=== PATIENT | male | born 1955 | race Caucasian/White ===

== ENCOUNTER 2018-04-23 12:10 | Inpatient (IN) ==
[2018-04-23] MEDS ORDERED: VANCOMYCIN IV PER PHARMACY MISC SCH (14:30)
[2018-04-23 14:46] LABS: HEMATOCRIT 41.4 % (42.0-52.0); MCHC 33.8 g/dL (33-37); MCV 91.6 FL (81-99); MPV 8.9 FL (7.4-10.4); RBC 4.52 XMIL (4.7-6.1); RDW 12.6 % (11.5-14.5); WBC 11.15 X1000 (4.8-10.8)
[2018-04-23] MEDS ORDERED: VANCOMYCIN 2,000 MG in NS 500 ML IV ONE (15:00)
[2018-04-23 15:19] LABS: AGAP 12; ALB/GLOB RATIO 0.9; ALBUMIN 3.8 g/dL (3.5-5.0); ALKALINE PHOSPHATASE 93 U/L (32-122); BUN 17 mg/dL (8-22); C REACTIVE PROT QUANT 99.92 mg/L (0.00-5.00); CALCIUM 9.5 mg/dL (8.8-10.2); CHLORIDE 102 mmol/L (98-107); COSMO 282; CREATININE 0.8 mg/dL (0.7-1.2); ESTIMATED GFR > 60; GLUCOSE 210 mg/dL (70-104); GOT 18 U/L (10-34); GPT 21 U/L (10-44); POTASSIUM 4.3 mmol/L (3.5-5.1); SODIUM 137 mmol/L (136-145); TCO2 23 mmol/L (25-35); TOTAL BILIRUBIN 0.36 mg/dL (0.20-1.00); TOTAL PROTEIN 7.9 g/dL (6.3-8.3)
[2018-04-23] MEDS: NS 1,000 ML IV SCH (15:23)
--- NOTE | 2018-04-23 16:31 | Diag Imaging Result Doc PS360 ---
MRI LOW EXTREMTY W/CON-RIGHT - 04/23/2018 INDICATION: Right foot Osteomyletis TECHNIQUE: MRI right foot without and with intravenous contrast COMPARISON: None FINDINGS: At the lateral soft tissues near the base of the fifth metatarsal, there is a soft tissue signal abnormality that probably represents a foreign body. This may well be metallic due to the large amount of signal. This extends down to the surface of the bone. Otherwise, bone marrow signal appears normal. No fluid collections. There is moderate edema of the dorsal soft tissues of the forefoot. There is also some enhancement in the soft tissues lateral to the fifth metatarsal base, very near the region of the soft tissue abnormality. There is some mild degeneration of the mid tarsal joints. No visible fracture. There is also some degenerative bone marrow edema. IMPRESSION: Apparent soft tissue foreign body at the lateral foot soft tissues. Adjacent inflammation suggesting some cellulitis. No evidence of osteomyelitis. Nonspecific dorsal foot soft tissue edema. Electronically signed by Zak Fortune 04/23/2018 4:29 PM
--- NOTE | 2018-04-23 22:03 | HISTORY AND PHYSICAL ---
CHIEF COMPLAINT: Right foot swelling. HISTORY OF PRESENT ILLNESS: He is a 62-year-old, white gentleman, complicated diabetes with peripheral neuropathy. Had a nail pierced on the right foot with a boot while he was working in the garage last week. Subsequently, the nail went through the mid part of the 5th metatarsal and the bone was chipped off. There was a small foreign body on the x-ray. He did not seek medical attention. He was seen in the walk-in clinic. He was given tetanus shot and referred to Dr. Murray. Dr. Murray sent home on p.o. antibiotics. He failed to improve. The whole leg is red and there is a yellow spot on the dorsal area. I would treat as if he has osteomyelitis because the nail hit the bone. As a result, was admitted to the hospital for IV antibiotics and also MRI of the right foot. Patient was referred to Dr. Storey and discussed with Dr. Murray. His sedimentation rate was high. CRP was high. As a result, a hospital admission was warranted. PAST MEDICAL HISTORY: Hypertension, metabolic syndrome, osteoarthritis, complicated diabetes with neuropathy. PAST SURGICAL HISTORY: C4-C5 fusion, back surgery x3. Carpal tunnel surgery. MEDICATIONS: Amlodipine 5 mg daily, cyanocobalamin 2500 mg subcu daily. Glimepiride 10 mg p.o. b.i.d., losartan 50 daily, metformin 850 three times daily. ALLERGIES: Reported to beta blockers. SOCIAL HISTORY: , one kid, no smoking. No alcohol. No drug abuse. FAMILY HISTORY: Father of lung cancer at 76, mom and of diabetes and heart attack. HEALTH MAINTENANCE: Flu vaccine 12/2017, pneumococcal 2013. Tetanus 2018. Last physical exam 08/2017, colonoscopy 2005. Last exam 12/2016. REVIEW OF SYSTEMS: HEENT: No headache. No vision problem. No earache. No sore throat. Neck: No goiter. No lymphadenopathy. No bruit. Cardiopulmonary: No chest pain, shortness of breath, PND, orthopnea. GI: No nausea, vomiting, abdominal pain. He has decreased sensory on both feet with injury to the right foot, complicated by osteo in the bone. Decreased sensory exam. No focal symptoms or weakness. PHYSICAL EXAMINATION: VITAL SIGNS: Temperature is 98, pulse is 90, blood pressure is 150/61. 5 feet 10 inches, 221 pounds. HEENT: Atraumatic, normocephalic. Pupils equal, reactive to light. TMs are normal. Nose and throat within normal limits. NECK: Supple. No lymphadenopathy. No goiter. CHEST: Bilateral air entry. HEART: Sounds are regular. No murmur. ABDOMEN: Belly is soft, nontender. Good bowel sounds. RECTAL: Deferred. Decreased sensory exam in both feet. Right foot is diffusely swollen, red. Puncture wound on the bottom of the 5th metatarsal bone. DIAGNOSTICS: X-rays in my office, right foot. Fracture of the mid part of the 5th metatarsal bone with questionable foreign body there or bone chip. INVESTIGATIONS: CBC: White cell count 11, hematocrit 41, platelets 309. Sedimentation rate 64, SMA-7 is normal. Sugar is 219, CRP 99. ASSESSMENT AND PLAN: A 62-year-old, white male, with complicated diabetes with neuropathy with a puncture wound. Had hit the bone with the fracture and a questionable foreign body with diffuse redness. We will treat as osteomyelitis. Elevated sedimentation rate. Elevated white cell count, elevated CRP. Plan is Ortho consult. MRI of the right foot, and IV vancomycin. Reconcile home medications. Also start some IV PICC line and consider IV antibiotics at home. We will also consult with Dr. Kamron Jarrell. DVT prophylaxis with Lovenox. IV fluids and will follow up. cc: Lasha Lerner MD
[2018-04-23] MEDS: NORVASC PO SCH (22:05)
[2018-04-23] MEDS: HUMULIN R SUBQ SCH ×2 (22:05→22:10)
[2018-04-24] MEDS: HUMULIN R SUBQ SCH ×4 (06:51→22:17)
[2018-04-24] MEDS ORDERED: VANCOMYCIN 2,000 MG in NS 500 ML IV SCH (08:00)
[2018-04-24] MEDS: AMARYL PO SCH ×2 (08:24→16:35)
[2018-04-24] MEDS: NS 1,000 ML IV SCH ×2 (08:24→15:10)
[2018-04-24] MEDS: COZAAR PO SCH (08:24)
[2018-04-24] MEDS: GLUCOPHAGE PO SCH ×3 (08:24→16:36)
[2018-04-24] MEDS: LOVENOX SUBQ SCH (08:25)
--- NOTE | 2018-04-24 09:00 | CONSULTATION ---
DATE OF CONSULTATION: 04/24/2018 CHIEF COMPLAINT: Right foot swelling. HISTORY OF PRESENT ILLNESS: Mr. Miller is a 62-year-old male whom we saw in the office last week. He was complaining of a wound at his right foot after stepping on a screw. He states he thinks he stepped on a screw about noon and he did not notice it until about 6 o'clock that night when he took his shoe off. He does have a history of diabetes and history of peripheral neuropathy so he was unable to feel the screw as it was in his foot. He presented to our office where we placed him on oral antibiotics and have instructed him to follow up in 1 week. He failed to improve following this visit. He was admitted to the hospital for IV antibiotics. We were asked for further evaluation and treatment. PAST MEDICAL HISTORY: See the admission history and physical. PAST SURGICAL HISTORY: See the admission history and physical. ALLERGIES: See the admission history and physical. MEDICATIONS: See the admission history and physical. REVIEW OF SYSTEMS: Positive for right foot pain and swelling. All others negative. PHYSICAL EXAMINATION: General: This is a well developed, well nourished male. He is alert, oriented, and cooperative with the examination. He is in no acute distress. Vital Signs: His temperature is 97.8 degrees, his pulse is 79, his blood pressure is 149/87, his oxygen saturation is 99% on room air. HEENT: Head is normocephalic, atraumatic. Neck: Supple. Respiratory: His breathing is nonlabored. Abdomen: Nondistended. Neurologic: He has decreased sensation on his right foot. Skin: There is erythema throughout his right dorsal foot and there is a bulla with what appears to be pus at the dorsal foot over the 5th metatarsal. Musculoskeletal: He has good range of motion of his right foot with some pain. IMAGING: An MRI of his right foot revealed an apparent soft tissue foreign body at the lateral foot soft tissues with no evidence of osteomyelitis. ASSESSMENT: Right foot cellulitis with foreign body. PLAN: We are going to proceed with a right foot irrigation and debridement with Dr. Murray. Dr. Murray discussed with the patient the risks and benefits of the surgery, including the risks of anesthesia, , bleeding, infection, damage to tendons, nerves, ligaments, and other imponderables were discussed with the patient. The patient wishes to proceed with operative management at this time. We will keep him NPO and manage his pain. Dictated by KIKE Soliman for Duane Murray MD cc: KIKE Soliman MD Jagan Reddy, MD
--- NOTE | 2018-04-24 09:30 | Diag Imaging Result Doc PS360 ---
EXAM: FOOT COMPLETE RIGHT HISTORY: Right Foot Infection with possible foreign body TECHNIQUE: Right foot, three views COMPARISON: None. FINDINGS: There is soft tissue swelling adjacent to the fifth metatarsal. There is a 5-6 mm lucent area laterally in the mid fifth metatarsal. The margins of this are fairly smooth. 1 mm foreign body within the soft tissues adjacent to the lucent area. IMPRESSION: Tiny foreign body in the soft tissues of the lateral foot. Apparent postsurgical changes to the fifth metatarsal. Electronically signed by Sekou Groves 04/24/2018 9:28 AM
[2018-04-24] MEDS ORDERED: VERSED ONE ×2 (09:52→11:15)
[2018-04-24] MEDS ORDERED: ROBINUL ONE (09:53)
[2018-04-24] MEDS ORDERED: SENSORCAINE-MPF 0.5%/EPI 1:200,000 ONE (10:33)
[2018-04-24] MEDS ORDERED: KETAMINE ONE (11:04)
[2018-04-24] MEDS ORDERED: SENOKOT PO PRN (12:01)
[2018-04-24] MEDS ORDERED: ZOFRAN IV PRN (12:01)
[2018-04-24] MEDS ORDERED: MORPHINE IV PRN ×2 (12:01→12:07)
[2018-04-24] MEDS: OXY IR PO PRN ×2 (13:06→16:35)
--- NOTE | 2018-04-24 14:55 | INFECTIOUS DISEASE CONSULT REP ---
DATE: 04/24/2018 CONCLUSION: The patient stepped on a screw and developed a very serious infection of the right foot. He has had surgery today. The MRI of the foot showed definite cellulitis and also showed what was termed a foreign body, but most likely it was the part of the bone that the screw broke off. RECOMMENDATIONS: Pending culture results, I have placed the patient on daptomycin and stopped vancomycin because the patient has decreased hearing. The daptomycin will cover gram-positive cocci such as strep and staph, including MRSA. I have started the patient on oral Levaquin to provide coverage for gram-negative organisms that were probably growing in the patient's shoe that the screw went through and these organisms then were impaled in the foot. Examples of such organisms would be Pseudomonas or Serratia or Enterobacter. Most likely, the patient will need to have placement of a PICC, but I am going to wait and try to see what actual organisms are growing before putting in the PICC. Two days ago the patient received a tetanus immunization booster shot. DISCUSSION: The patient approximately 6 days ago had a screw that impaled his right foot. He has severe peripheral neuropathy and he did not feel any pain. His foot became progressively more erythematous and swollen. Today he underwent surgery performed by Dr. Storey. Cultures and Gram stains are still pending on the foot. PAST MEDICAL HISTORY / REVIEW OF SYSTEMS: Eyes and Ears: The patient has decreased vision and hearing. Neck: No stiffness. Respiratory: No cough or shortness of breath. Cardiac: No chest pain or palpitations. Gastrointestinal: No nausea, vomiting or diarrhea. Genitourinary: No dysuria or flank pain. Integument: No rash. Bones, Joints, Muscles: See present illness. Neurologic: No seizures. No recent loss of motor or sensory function. PREVIOUS HOSPITALIZATIONS AND OPERATIONS: Patient has had 3 laminectomies. He has also had an operation on his cervical spine. He has had bilateral carpal tunnel surgery and he had surgery on his thumb also. The patient also was admitted to the hospital because of bradycardia, which turned out to be caused by one of the medicines the patient was taking. MEDICAL DISEASES: Positive for diabetes mellitus, hypertension, bradycardia which was serious enough that it caused the patient to be hospitalized. INFECTIOUS DISEASE HISTORY: Positive for pneumonia and UTI. FAMILY HISTORY: Positive for diabetes mellitus, hypertension, myocardial infarction, stroke and cancer. SOCIAL HISTORY[place] . He has dogs for pets. He does not smoke cigarettes, drink alcoholic beverages or abuse drugs. He is retired. HOME MEDICATIONS: Include the following: Amlodipine, glimepiride, losartan and metformin. PHYSICAL EXAMINATION: Vital Signs: Temperature is 98.2, pulse 85, respirations 14, blood pressure 139/75. The patient is 5 feet 10 inches tall, weighs 221 pounds. General: This is an obese, elderly male. He is in no acute distress. Head, Eyes, Ears, Nose and Throat: He can hear my spoken words and see near objects. He does not have any white patches on his tongue. Neck: No stiffness. Lungs: Clear to auscultation. Cardiovascular: Regular heart rate. Abdomen: Soft and nontender. Neurologic: Patient is awake. He can move his extremities. There is no tremor. Bones, Joints, Muscles: The patient's right foot is in a large dressing. The dressing is intact. Thank you for the consult. cc: MD Lasha Fung MD MTDD
[2018-04-24] MEDS: LEVAQUIN PO SCH (15:09)
[2018-04-24] MEDS: CUBICIN 600 MG in NS 100 ML IV SCH (15:09)
[2018-04-24] MEDS: NORVASC PO SCH (21:10)
--- NOTE | 2018-04-24 21:46 | PROGRESS NOTE ---
DATE: 04/24/2018 SUBJECTIVE: Appreciated consultants report. The patient has the right foot more swollen and obvious some yellow pus noted on the lateral border of the right side of the foot. X-rays reviewed with Dr. Jarrell. Tiny foreign body in the soft tissue and a chip fracture of the mid part of the 5th metatarsal bone noted. Dr. Murray notified. OBJECTIVE: Vital Signs: On exam, temperature is 98, vitals are stable. HEENT : Within normal limits. Neck: Supple. No lymphadenopathy. Chest: Bilateral air entry. Heart: Sounds are regular. Abdomen: Belly is soft, nontender. Neurologic: No neurological deficits. ASSESSMENT AND PLAN: 1. Right foot puncture wound, suspicious for osteomyelitis. Will treat it for 6 weeks of IV antibiotics. I appreciate Dr. Murray and Dr. Jarrell consult and patient is going for debridement. Currently patient is receiving IV daptomycin. 2. Continue diabetes control. 3. Deep vein thrombosis prophylaxis with Lovenox and we will follow up on the culture. LEVEL OF DOCUMENTATION: 25 minutes. cc: Lasha Lerner MD MTDD
[2018-04-25] MEDS: NS 1,000 ML IV SCH ×2 (03:22→16:41)
[2018-04-25] MEDS: HUMULIN R SUBQ SCH ×4 (06:08→22:18)
[2018-04-25] MEDS: COZAAR PO SCH (08:02)
[2018-04-25] MEDS: AMARYL PO SCH ×2 (08:02→17:37)
[2018-04-25] MEDS: GLUCOPHAGE PO SCH ×3 (08:02→17:37)
[2018-04-25] MEDS: LEVAQUIN PO SCH (08:02)
[2018-04-25] MEDS: LOVENOX SUBQ SCH (08:02)
--- NOTE | 2018-04-25 08:02 | PROGRESS NOTE ---
DATE: 04/25/2018 SUBJECTIVE: Mr. Miller is lying in bed this morning overall feeling fine. OBJECTIVE: Right lower extremity exam still a little bit of erythema just seen on his toes, but he is able to move the toes well. Dressing is clean, dry, and intact. ASSESSMENT: Status post right foot irrigation and debridement, and removal of foreign body. PLAN: I discussed with Mr. Miller about the surgery yesterday. We took out a lot of the blue plastic from around that area. There was a lot of purulence that was there, and we washed all that out and packed it with Vashe-soaked gauze. We will plan on taking his dressing down in the morning and re-evaluating everything. If it looks like we may need to take him back to the OR for another washout, we will then. He is going to be n.p.o. after midnight tonight. He will be that way until he sees me in the morning. cc: MD Lasha Tejada MD MTDD
[2018-04-25 10:20] LABS: INR 1.07; PROTIME 14.7 Seconds (11.0-16.0)
[2018-04-25] MEDS ORDERED: NS 250 ML ONE (11:54)
[2018-04-25] MEDS: CUBICIN 600 MG in NS 100 ML IV SCH (13:54)
--- NOTE | 2018-04-25 18:33 | PROGRESS NOTE ---
DATE: 04/25/2018 SUBJECTIVE: Appreciate Dr. Storey's consult and discussed with Dr. Jarrell. Status post right foot irrigation, debridement and removal of foreign body with injury to the 5th mid metatarsal bone. REVIEW OF SYSTEMS: None reported. EXAM: Vital Signs: Temp is 97, pulse is 94, blood pressure 144/87. HEENT: Within normal limits. Neck: Supple. No lymphadenopathy. No goiter. Chest: Clear. Heart: Heart sounds are regular. Abdomen: Belly is soft, nontender. Neurologic: No neurological deficits. Extremities: Right leg is swollen. LABORATORY: Blood sugars are running 100. Gram-positive cocci. ASSESSMENT AND PLAN: 1. Status post right foot debridement, irrigation and removal of foreign body. Gram-positive cocci. Discussed with Dr. Jarrell for IV antibiotics at home. PICC line was ordered. 2. DVT prophylaxis with Lovenox. 3. Continue IV daptomycin. 4. Diabetes, stable on metformin and glimepiride. Check the labs in the morning. LEVEL OF DOCUMENTATION: 25 minutes. cc: Lasha Lerner MD
--- NOTE | 2018-04-25 19:09 | INFECTIOUS DISEASE PROGRESS NO ---
DATE: 04/25/2018 PRESENT ILLNESS: The patient has a gram-positive coccal infection of his right foot. MEDICATION: The patient is on a combination of daptomycin and Levaquin. PHYSICAL EXAMINATION: Vital Signs: Temperature is 97.7 degrees, pulse 94, respirations 16, blood pressure 144/87. General: This is a healthy-appearing, middle-aged male. He is in no acute distress. Head, eyes, ears, nose, and throat: He can hear my spoken words and see near objects. He does not have a white coating on his tongue. Neck: No stiffness. Lungs: Clear to auscultation. Cardiovascular: Regular heart rate. Abdomen: Soft and nontender. Extremities: The patient has a PICC in his arm. The site is not erythematous or bleeding. The patient's right foot has a dressing around it. The dressing is intact. Neurologic: Patient is alert. He can move his extremities. There is no tremor. LAB AND X-RAY: The culture showed gram-positive cocci are growing. There were no other new lab studies and no new radiographic studies. ASSESSMENT: The patient has an infection of his foot and the organism that is causing the infection is a gram-positive coccus. Dr. Storey told me that when he did the patient's surgery that there was pus that was present that was on the bone. Therefore, I conclude that the patient has osteomyelitis even though the MRI did not show that. PLAN: My plan will be to treat the patient for 6 weeks if the gram-positive coccus is Streptococcus or if it is an oxacillin-sensitive Staphylococcus aureus. If the organism turns out to be methicillin-resistant Staphylococcus aureus, then the patient will need 8 weeks of IV antibiotics. COMORBIDITIES: Diabetes mellitus and, unfortunately, the patient had neuropathy, and when he stepped on the screw he did not realize how serious the situation was. cc: MD Lasha Fung MD
[2018-04-25] MEDS: NORVASC PO SCH (22:17)
[2018-04-26] MEDS: NS 1,000 ML IV SCH ×3 (05:56→18:45)
[2018-04-26] MEDS: HUMULIN R SUBQ SCH ×4 (06:08→21:15)
[2018-04-26 08:27] LABS: BASO# 0.05 X1000 (0.0-0.2); BASO% 0.5 % (0.0-0.8); EOS% 3.7 % (0.0-10.0); HEMATOCRIT 40.2 % (42.0-52.0); HEMOGLOBIN 13.3 g/dL (14.0-18.0); IMM GRAN# 0.12 X1000 (0.0-0.04); IMM GRAN% 1.1 % (0.0-0.5); LYMPH# 3.01 X1000 (1.2-3.4); MCH 30.2 PG (27-31); MCHC 33.1 g/dL (33-37); MCV 91.2 FL (81-99); MONO# 1.09 X1000 (0.11-0.59); MONO% 10.1 % (1.7-9.3); MPV 8.8 FL (7.4-10.4); NEUT# 6.09 X1000 (1.4-6.5); NEUT% 56.6 % (42.2-75.2); PLT 347 X1000 (130-400); RBC 4.41 XMIL (4.7-6.1); RDW 12.3 % (11.5-14.5); WBC 10.76 X1000 (4.8-10.8)
[2018-04-26 08:38] LABS: CREATININE 0.7 mg/dL (0.7-1.2)
[2018-04-26 08:43] LABS: EOS 4 % (1-10); LYMPHS 36 % (21-51); MONO 2 % (1-9); SEGS 58 % (42-75)
[2018-04-26] MEDS: COZAAR PO SCH (09:24)
[2018-04-26] MEDS: AMARYL PO SCH ×2 (09:24→16:24)
[2018-04-26] MEDS: GLUCOPHAGE PO SCH ×3 (09:25→16:24)
[2018-04-26] MEDS: LOVENOX SUBQ SCH (09:25)
[2018-04-26] MEDS: CUBICIN 600 MG in NS 100 ML IV SCH (13:49)
--- NOTE | 2018-04-26 15:36 | PROGRESS NOTE ---
DATE: 04/26/2018 SUBJECTIVE: Mr. Miller is lying in bed this afternoon. Overall feeling okay. OBJECTIVE: Right lower extremity exam: We took the whole dressing down, took the packing out. He does still have some erythema around the foot but his swelling has come down a pretty good bit. Not a lot of drainage seen and after I took the packing out, there is no active drainage anywhere. We ended up packing the wound again with some saline soaked gauze and then put a dressing on top of that. ASSESSMENT: status post irrigation and debridement right foot with foreign body removal. PLAN: I do not think we need to go back to the OR today. I think he is getting a little bit better. We will continue to monitor the wound and pack it and will continue to follow. cc: MD Lasha Tejada MD
[2018-04-26] MEDS: OXY IR PO PRN (16:24)
--- NOTE | 2018-04-26 18:31 | INFECTIOUS DISEASE PROGRESS NO ---
DATE: 04/26/2018 PRESENT ILLNESS: The patient has a Staphylococcus epidermidis infection of his right foot which includes osteomyelitis as well as cellulitis. MEDICATIONS: The patient is on daptomycin as a single agent. PHYSICAL EXAMINATION: Vital Signs: Temperature is 98.1 degrees, pulse 95, respirations 13, blood pressure 154/90. General: This is a healthy-appearing middle-aged male. He is in no acute distress. Head/eyes/ears/nose/throat: He can hear my spoken words and see near objects. He does not have any white coating of his tongue. Neck: No meningismus. Lungs: Clear to auscultation. Cardiovascular: Heart rate is regular. Abdomen: Soft and not tender. Extremities: The patient has a PICC in his left arm. The PICC site is not erythematous or swollen. The patient's right foot has a large dressing around it, the dressing is intact. Neurologic: The patient is alert. He can move his extremities. He does not have any tremor. LAB AND X-RAY: CBC shows a white count of 10,760, hemoglobin 13.3, and platelet count 347,000. Creatinine is 0.7. GFR is greater than 60. The CK is 40. As mentioned above, the patient's culture grew out Staphylococcus epidermidis. ASSESSMENT AND PLAN: The patient has Staphylococcus epidermidis cellulitis, abscess, and osteomyelitis of the right foot. The plan is to treat for 6 weeks with daptomycin. COMORBIDITIES: The patient is diabetic and unfortunately, has neuropathy and did not feel anything after he injured his foot. cc: MD Lasha Fung MD
[2018-04-26] MEDS: NORVASC PO SCH (22:43)
--- NOTE | 2018-04-26 23:09 | PROGRESS NOTE ---
DATE: 04/26/2018 SUBJECTIVE: The patient is an good spirits. PICC line was placed on the left side. REVIEW OF SYSTEMS: None reported. is at bedside. I have seen the screw. Dr. Storey is going to take to the operating room for washout today. OBJECTIVE/EXAM: Vital signs: Temperature 97 degrees, pulse is 85, blood pressure 115/75. HEENT: Within normal limits. Neck: Supple. Chest: Clear. Heart: Sounds are regular. Abdomen: Belly is soft, nontender. Good bowel sounds. Extremities: The right foot has bandage applied. INVESTIGATIONS: CBC: White cell count 10, hematocrit 40, platelets 347,000. INR 0.7. CRP was 40. Blood cultures reported Staph epidermidis which is resistant to oxacillin. ASSESSMENT AND PLAN: 1. Right foot osteomyelitis at the 5th bone with soft tissue infection with foul body status post wound irrigation and debridement. 2. MSSE. Currently on daptomycin. 3. Deep venous thrombosis prophylaxis with Lovenox. 4. Diabetes is stable. 5. Decided to be treated outpatient IV antibiotics for 6 weeks. Waiting for 2nd irrigation today. Will make the arrangements to go home with outpatient antibiotics, continue deep venous thrombosis prophylaxis. LEVEL OF DOCUMENTATION: 25 minutes. cc: Lasha Lerner MD
[2018-04-27] MEDS: NS 1,000 ML IV SCH (06:14)
[2018-04-27] MEDS: HUMULIN R SUBQ SCH ×3 (06:31→16:55)
[2018-04-27] MEDS: OXY IR PO PRN ×3 (08:16→16:56)
[2018-04-27] MEDS: AMARYL PO SCH ×2 (08:16→16:56)
[2018-04-27] MEDS: COZAAR PO SCH (08:16)
[2018-04-27] MEDS: GLUCOPHAGE PO SCH ×3 (08:16→16:55)
[2018-04-27] MEDS: LOVENOX SUBQ SCH (08:17)
[2018-04-27] MEDS: CUBICIN 600 MG in NS 100 ML IV SCH (13:40)
--- NOTE | 2018-04-27 13:48 | INFECTIOUS DISEASE PROGRESS NO ---
DATE: 04/27/2018 PRESENT ILLNESS: Patient has a Staph epidermidis osteomyelitis and cellulitis of the right foot which occurred when the foot became impaled with a screw. MEDICATIONS: The patient is receiving daptomycin as a single agent. PHYSICAL EXAMINATION: Vital Signs: Temperature is 98 degrees, pulse 85, respirations 18, blood pressure 152/84. General: This is a healthy-appearing middle-aged male. He is in no acute distress. Head/eyes/ears/nose/throat: He can hear my spoken words and see near objects. He does not have any white patches on his tongue. Neck: No meningismus. Lungs: Clear to auscultation. Cardiovascular: Heart rate is regular. Abdomen: Soft and nontender. Extremities: The patient has a PICC in his left arm. The site is not erythematous or draining. The patient's right foot has a large dressing around it. The dressing is intact. Neurologic: The patient is alert. He can move his extremities. He does not have any tremor. LAB AND X-RAY: CBC shows a white count of 10,760, hemoglobin is 13.3 and platelet count is 347,000. Patient's creatinine is 0.7. CK value is 40. ASSESSMENT AND PLAN: Patient has Staph epidermidis cellulitis abscess and osteomyelitis of the right foot. The patient has had surgery performed by Dr. Storey and the abscess has been drained and the foot has been debrided thoroughly by Dr. Storey. I plan to treat the patient for a total of 6 weeks with daptomycin. He will be going to the outpatient clinic for his medications. We are giving the patient an appointment to see us in the office at 3 weeks and then at 6 weeks and at the 6 weeks appointment, hopefully we will be able to stop the daptomycin and remove the patient's PICC. I have filled out orders for the outpatient clinic where the patient will be getting his daily medication. COMORBIDITIES: Patient is a diabetic and he has neuropathy so he does not feel many things on his feet and that is probably why his infection became so advanced because the patient could not really feel that there was anything wrong with the foot. cc: MD Lasha Fung MD
[2018-04-27 16:17] VITALS: BP 178/93
--- NOTE | 2018-04-28 22:38 | DISCHARGE SUMMARY ---
ADMISSION DATE: 04/23/2018 DISCHARGE DATE: 04/27/2018 DISCHARGING DIAGNOSIS: 1. Right foot osteomyelitis with soft tissue infection with infected vielka nail penetrated to the mid part of the 5th metatarsal bone associated with a lot of foreign body debris with cellulitis and abscess due to methicillin-resistant staphylococci epidermidis. SECONDARY DIAGNOSIS: 1. Hypertension. 2. Metabolic syndrome. 3. Osteoarthritis. 4. Type 2 diabetes control. 5. Peripheral neuropathy. 6. Vitamin B12 deficiency. CONSULTS: Dr. Storey. PROCEDURES: Irrigation, debridement of the right foot associated with open wound on the dorsal side with sterile gauze. BRIEF HISTORY: Please see the H and P that was done on 04/23/2018. In brief, he is a 62-year- old white gentleman, complicated diabetes with neuropathy admitted to the hospital with 3-day history of right foot penetrated injury from the screw went through the mid part of the 5th metatarsal bone complicated by abscess, wound infection and cellulitis. Wound cultures showed staphylococcal epidermidis resistant to methicillin and oxacillin. MRI showed soft tissue infection along with foreign body material. He was given IV Cubicin. Dr. Jarrell recommended 6 weeks of IV antibiotics since the screw was penetrated the bone and also part of the bone was chipped off. PICC line was placed on the left side. LABS: CBC. White cell count 10, hematocrit 40, platelets 347,000, sedimentation rate was 64. PT 14, INR 1.0. Blood sugars 140. CRP 99. DISCHARGE INSTRUCTIONS: 1. Tetanus toxoid was up-to-date in 2019. Glimepiride 2 mg p.o. b.i.d., losartan 50 in the morning, amlodipine 5 mg daily, metformin 850 t.i.d. local wound care with outpatient wound clinic. 2. IV Cubicin as per Dr. Jarrell for 6 weeks. Follow up with Dr. Storey's office on Monday outpatient clinic. IV home antibiotics, control the sugar, care of the feet and follow up in my office in 2 weeks. cc: Efrem Storey MD
--- NOTE | 2018-05-03 06:36 | OPERATIVE NOTE ---
PROCEDURE DATE: 04/24/2018 PREOPERATIVE DIAGNOSES: 1. Right foot foreign body. 2. Right forefoot infection with abscess. POSTOPERATIVE DIAGNOSES: 1. Right foot foreign body. 2. Right forefoot infection with abscess. PROCEDURES: 1. Right foot irrigation and debridement to bone. 2. Right foot foreign body removal, deep. SURGEON: Dr. Efrem Storey. INSPECTOR F[employer]SEM[employer]Y: None. ANESTHESIA: General with LMA. IMPLANTS: None. DISPOSITION: To PACU, hemodynamically stable. INDICATIONS FOR PROCEDURE: Mr. Miller is a 62-year-old male who was admitted to the hospital for this right foot infection. He says that he stepped on a nail that had some plastic on it a while back and now his whole foot is red and erythematous. There is some fluctuance to this dorsal lateral aspect of his foot, so I discussed with him about surgical intervention. He expressed understanding and wished to proceed. DESCRIPTION OF PROCEDURE: Mr. Miller was identified in the treatment holding area. The right foot was marked as correct surgical site. He was then wheeled to the operating room, placed supine on the operating table. All bony prominences well padded. He was induced under general anesthesia, LMA was placed. Tourniquet placed to the right thigh. Right lower extremity was then prepped with chlorhexidine scrub, and then ChloraPrep, and draped in normal sterile fashion. Surgical pause was performed, we identified the correct patient, correct side, and the correct procedure. Preop antibiotics were given. The leg was elevated and tourniquet was inflated to 300 mmHg. I started with an incision over the dorsal lateral aspect of the forefoot. There was a lot of purulent drainage from the very beginning, we took cultures of that and then dissected down all the way to bone and you could see that 5th metatarsal. There was a cut out of that 5th metatarsal which was seen actually on x- rays. It did not go into the medullary canal. It was pretty corticated there. I did an excisional debridement with forceps and scalpel of the skin and subcutaneous tissue, a little bit of the muscle, and all the way to the bone. We did scrape the bone as well with a curette, and then excisionally debrided all that infected looking tissue using a curette as well. I curetted the soft tissues to get back to a good healthy looking tissue. Some of the abscess did track dorsally over to about the 2nd metatarsal, but bone was not exposed, it was just superficial there. After we had an extremely thorough debridement, including that puncture site on the plantar aspect of the foot, I then irrigated everything copiously with normal saline. I packed it with a Bausch soaked gauze. Then 4x4s, ABD, soft roll was applied. He was then awoken from general anesthesia, moved to his own bed and taken to the PACU in stable condition. POSTOPERATIVE CARE: He will remain on IV antibiotics. He will be in the hospital and I will perform dressing change in a few days. cc: MD Lasha Tejada MD
== END 2018-04-27 18:28 | disposition home or self-care (01) | DRG 629 ==
LOC: DIRADM 12:10 → 3N 13:01
PROVIDERS: ADMIT Internal Medicine; ATTEND Internal Medicine
CPT/HCPCS: 36569; 73630; 73719; 76000; 80053; 82550; 82565; 82948; 85025; 85027; 85610; 85651; 86140; 87070; 87075; 87077; 87186; 94761; 94799; A9270; A9579; J0878; J1650; J2250; J2270; J3370; J7030; J7040; J7050; XXXXX